=== PATIENT | female | born 1950 | race Caucasian/White ===

== ENCOUNTER 2018-09-08 07:20 | Day surgery (SDC) | payer BC ==
[2018-07-25 09:51] VITALS: BMI 25.9
[2018-09-08] MEDS ORDERED: Simethicone 40 mg/0.6 ml Liquid (30 ml) ONE (08:20)
[2018-09-08] MEDS ORDERED: Propofol 10 mg/ml Inj (20 ML) ONE (09:24)
[2018-09-08] MEDS ORDERED: Sodium Chloride 0.9% 1,000 ML IV SCH (10:00)
[2018-09-08 10:30] VITALS: BP 133/71; PULSE 57; RESP 16; TEMP 97.6; O2SAT 98
== END 2018-09-08 11:03 | disposition home or self-care (01) ==
LOC: ENDO 07:20
PROVIDERS: ATTEND Internal Medicine Gastroenterology
DX: K26.9 Duodenal ulcer, unspecified as acute or chronic, without hemorrhage or perforation (principal); K31.7 Polyp of stomach and duodenum; K29.80 Duodenitis without bleeding; K29.50 Unspecified chronic gastritis without bleeding; L80 Vitiligo
CPT/HCPCS: 43239; 88305; 88342; J2001; J2704; J7030; J7040